=== PATIENT | male | born 1975 | race Caucasian/White ===

== ENCOUNTER 2017-05-22 08:17 | Observation (INO) | payer OTHER ==
[~2017-05-22] VITALS: Ht 172.7 cm; Wt 114.2 kg
[~2017-05-22 08:17] MED LIST: ASPIR 8181 M1 PO; ASPIR-LOW81 MG PO; BYSTOLIC20 MG PO; CELEXA10 MG PO; ECOTRIN325 MG PO; FLONASE16 G1 BOTH NARES; TOPIRAMATE100 MG PO; VITAMIN D1000 UNIT PO; VITAMIN D31000 UNIT PO; VITAMIN D33000 UNIT PO
[2017-05-22 09:05] LABS: HEMATOCRIT 43.4 % (38.0-50.0); MCH 30.1 PG (29.0-34.0); MCHC 34.1 G/DL (30.0-36.0); MCV 88.4 FL (86-99); PLATELET COUNT 256 K/uL (156-360); RBC DIS.WIDTH-CV 12.1 % (11.8-14.6); RBC DIS.WIDTH-SD 38.8 % (39-53); RED BLOOD COUNT 4.91 M/uL (4.00-5.50); WHITE BLOOD COUNT 10.9 K/uL (4.1-10.2)
[2017-05-22 09:14] LABS: ADD MIUA? YES; BILIRUBIN NEGATIVE; BLOOD LARGE; COLOR AMBER ((YELLOW)); GLUCOSE (STRIP) NEGATIVE; KETONES NEGATIVE; LEUKOCYTES NEGATIVE; NITRITE NEGATIVE; PROTEIN (STRIP) 30; SPECIFIC GRAVITY 1.017 (1.000-1.030); UROBILINOGEN 0.2 MG/DL (0.2-1.0)
[2017-05-22 09:22] LABS: BACTERIA RARE /HPF; EPITHELIAL CELLS RARE /HPF; MUCUS TRACE /LPF; RED BLOOD CELLS TNTC /HPF (0-5)
[2017-05-22 09:30] LABS: CHLORIDE 106 mEq/L (99-109); SODIUM 136 mEq/L (136-147)
[2017-05-22 09:32] LABS: GLUCOSE 204 mg/dL (70-99)
[2017-05-22 09:33] LABS: ANION GAP 8 MEQ/L (2-14)
[2017-05-22 09:34] LABS: TOTAL BILIRUBIN 0.4 mg/dL (0.0-1.0)
[2017-05-22 09:35] LABS: ALKALINE PHOSPHATASE 88 IU/L (3-129)
[2017-05-22 09:36] LABS: GFR ESTIMATE (CALCULATED) > 59 mL/min/
[2017-05-22 09:37] LABS: UREA NITROGEN (BUN) 18 mg/dL (9-23)
[2017-05-22 09:39] LABS: LIPASE 15 U/L (1.0-51.0)
[2017-05-22 09:45] LABS: TROP-I INTERPRETATION NEGATIVE; TROPONIN-I 0.05 ng/mL (0.0-0.30)
[2017-05-22] MEDS ORDERED: LEXAPRO5 MG PO (11:42)
[2017-05-22] MEDS ORDERED: AMLODIPINE BESY10 MG PO (11:42)
[2017-05-22] MEDS ORDERED: MONTELUKAST SOD10 MG PO (11:43)
[2017-05-22 13:47] VITALS: BP 129/65
[2017-05-22] MEDS ORDERED: XANAX0.5 MG PO (14:36)
[2017-05-22 16:05] VITALS: BP 121/74
[2017-05-22 16:19] LABS: TROP-I INTERPRETATION NEGATIVE; TROPONIN-I 0.06 ng/mL (0.0-0.30)
[2017-05-22 20:00] VITALS: BP 143/83
[2017-05-22 22:03] LABS: TROP-I INTERPRETATION NEGATIVE; TROPONIN-I 0.05 ng/mL (0.0-0.30)
[2017-05-22 23:40] VITALS: BP 123/58
[2017-05-23 03:46] VITALS: BP 112/68
[2017-05-23 05:12] LABS: HEMATOCRIT 39.8 % (38.0-50.0); MCH 29.8 PG (29.0-34.0); MCHC 32.9 G/DL (30.0-36.0); MCV 90.5 FL (86-99); MEAN PLAT.VOLUME 9.9 uM^3 (9.0-12.4); PLATELET COUNT 237 K/uL (156-360); RBC DIS.WIDTH-CV 12.2 % (11.8-14.6); WHITE BLOOD COUNT 9.6 K/uL (4.1-10.2)
[2017-05-23 05:44] LABS: ANION GAP 5 MEQ/L (2-14); CHLORIDE 104 MEQ/L (99-109); GFR ESTIMATE (CALCULATED) > 59 mL/min/; POTASSIUM 4.2 MEQ/L (3.7-5.4); SAMPLE HEMOLYSIS CHECK 0; SAMPLE ICTERIC CHECK 0; SAMPLE LIPEMIA CHECK 0; SODIUM 138 MEQ/L (136-147); UREA NITROGEN (BUN) 20 mg/dL (9-23)
[2017-05-23 05:45] LABS: GLUCOSE 100 mg/dL (70-99)
[2017-05-23 07:42] VITALS: BP 120/80
[2017-05-23 11:38] VITALS: BP 123/68
[2017-05-23] MEDS ORDERED: FLOMAX0.4 MG PO (14:03)
== END 2017-05-23 15:23 | disposition home or self-care (01) ==
LOC: EME 08:17 → EDOF 11:26 → 5WEST 11:26 → CANRESERV 11:28 → ENRESERV 11:28 → EDOF 11:39 → ENRESERV 12:02 → 5WEST 13:32 → ENPENDDIS 05-23 → 5WEST 05-23 15:23
PROVIDERS: Internal Medicine; Nurse Practitioner Family
DX: N13.2 Hydronephrosis with renal and ureteral calculous obstruction (principal); R07.9 Chest pain, unspecified; R94.31 Abnormal electrocardiogram [ECG] [EKG]; N13.4 Hydroureter; F31.9 Bipolar disorder, unspecified; I10 Essential (primary) hypertension; E66.9 Obesity, unspecified; R73.03 Prediabetes; Z82.49 Family history of ischemic heart disease and other diseases of the circulatory system; R06.83 Snoring; K57.30 Diverticulosis of large intestine without perforation or abscess without bleeding; Z86.73 Personal history of transient ischemic attack (TIA), and cerebral infarction without residual deficits; Z87.891 Personal history of nicotine dependence; Z79.82 Long term (current) use of aspirin; Z82.3 Family history of stroke
CPT/HCPCS: 74176; 80048; 80053; 81003; 83690; 84484; 85027; 93005; 99281; 99285; G0378; J1200; J1650; J1885; J2270; J7120